=== PATIENT | female | born 1950 | race African-American/Black ===

== ENCOUNTER 2018-06-28 21:30 | Inpatient (IN) | payer MEDICARE, OTHER ==
[2018-06-28] MEDS ORDERED: BISACODYL 10 MG SUPP PR (22:00)
[2018-06-28] MEDS ORDERED: LACTULOSE 30ML CUP PO (22:00)
[2018-06-28] MEDS ORDERED: MAGNESIUM HYDROXIDE 30ML CUP PO (22:00)
[2018-06-28] MEDS: BENAZEPRIL 20 MG TAB PO (23:30)
[2018-06-28] MEDS: GABAPENTIN 300 MG CAP PO (23:30)
[2018-06-28] MEDS: SOD CHLORIDE 0.45% 1,000 ML IV (23:56)
[2018-06-29] MEDS: ALBUTEROL HFA 8 GM INHALER INH ×6 (01:00→21:19)
[2018-06-29 05:23] LABS: ADD UMIC YES; UR ASCORBIC ACID NEGATIVE (NEGATIVE); UR BILIRUBIN (Dip) NEGATIVE (NEGATIVE); UR BLOOD (Dip) NEGATIVE (NEGATIVE); UR CLARITY CLEAR (CLEAR); UR COLOR STRAW (YELLOW); UR GLUCOSE (Dip) NEGATIVE (NEGATIVE); UR KETONES (Dip) NEGATIVE (NEGATIVE); UR LEUKOCYTE ESTERASE (Dip) TRACE Leu/ul (NEGATIVE); UR NITRITE (Dip) NEGATIVE (NEGATIVE); UR RBC 0 /HPF (0-5); UR SPECIFIC GRAVITY (Dip) 1.005 (1.003-1.030); UR TOTAL PROTEIN (Dip) NEGATIVE (NEGATIVE); UR UROBILINOGEN (Dip) NEGATIVE (NEGATIVE); UR WBC 2 /HPF (0-5)
[2018-06-29 07:50] LABS: ADD MAN DIFF? NO
[2018-06-29 07:53] LABS: WHITE BLOOD COUNT 3.1 10^3/ul (4.8-10.8)
[2018-06-29 07:53] LABS: BASOPHILS % 1.3 % (0.0-2.0); EOSINOPHILS # 0.1 10^3/ul (0.0-0.5); EOSINOPHILS % 2.9 % (0.0-7.0); HEMOGLOBIN 12.4 g/dl (12.0-16.0); LYMPHOCYTES # 1.2 10^3/ul (0.8-2.9); LYMPHOCYTES % 39.7 % (15.0-51.0); MEAN CORPUSCULAR HEMOGLOBIN 27.4 pg (29.0-33.0); MEAN CORPUSCULAR HGB CONC 32.6 g/dl (32.0-37.0); MEAN CORPUSCULAR VOLUME 84.1 fl (82.0-101.0); MEAN PLATELET VOLUME 10.9 fl (7.4-10.4); MONOCYTE # 0.6 10^3/ul (0.3-0.9); MONOCYTES % 19.4 % (0.0-11.0); NEUTROPHIL # 1.1 10^3/ul (1.6-7.5); NEUTROPHILS % 36.7 % (39.0-77.0); PLATELET COUNT 157 10^3/UL (140-415); RED BLOOD COUNT 4.52 10^6/ul (4.20-5.40); RED CELL DISTRIBUTION WIDTH 14.2 % (11.5-14.5)
[2018-06-29 08:17] LABS: ALANINE AMINOTRANSFERASE 19 IU/L (13-69); ALBUMIN 3.5 g/dl (3.3-4.9); ALKALINE PHOSPHATASE 64 IU/L (42-121); ANION GAP 5 (5-13); ASPARTATE AMINO TRANSFERASE 26 IU/L (15-46); BILIRUBIN,INDIRECT 0.5 mg/dl (0-1.1); BILIRUBIN,TOTAL 0.5 mg/dl (0.2-1.3); BLOOD UREA NITROGEN 19 mg/dl (7-20); CALCIUM 9.2 mg/dl (8.4-10.2); CARBON DIOXIDE 26 mmol/L (21-31); CHLORIDE 110 mmol/L (97-110); CREATININE 1.34 mg/dl (0.44-1.00); Estimated GFR 48 mL/min (>60); GLUCOSE 92 mg/dl (70-220); POTASSIUM 3.9 mmol/L (3.5-5.1); SODIUM 141 mmol/L (135-144)
[2018-06-29] MEDS: GABAPENTIN 300 MG CAP PO ×3 (08:32→21:13)
[2018-06-29] MEDS: ASPIRIN (EC) 81 MG TAB PO (08:32)
[2018-06-29] MEDS: DOLUTEGRAVIR SODIUM 50 MG TABLET PO (08:32)
[2018-06-29] MEDS: DARUNAVIR/COBICISTAT 1 EACH TABLET PO (08:32)
[2018-06-29] MEDS: DOCUSATE SODIUM 100 MG CAP PO ×2 (08:33→21:00)
[2018-06-29] MEDS: SERTRALINE 50 MG TAB PO (08:33)
[2018-06-29] MEDS: BENAZEPRIL 20 MG TAB PO ×2 (08:33→21:15)
[2018-06-29] MEDS: LAMIVUDINE 150 MG TAB PO (09:17)
[2018-06-29] MEDS: SOD CHLORIDE 0.45% 1,000 ML IV ×2 (13:33→18:48)
[2018-06-29] MEDS: ACETAMINOPHEN 325 MG TAB PO (14:31)
[2018-06-29] MEDS: SENNA TAB PO (21:00)
[2018-06-29] MEDS: ATORVASTATIN 10 MG TAB PO (21:13)
[2018-06-30] MEDS: ALBUTEROL HFA 8 GM INHALER INH ×6 (01:00→20:36)
[2018-06-30] MEDS: SOD CHLORIDE 0.45% 1,000 ML IV ×3 (04:06→18:24)
[2018-06-30] MEDS: LAMIVUDINE 150 MG TAB PO (08:21)
[2018-06-30] MEDS: SERTRALINE 50 MG TAB PO (08:21)
[2018-06-30] MEDS: DOLUTEGRAVIR SODIUM 50 MG TABLET PO (08:21)
[2018-06-30] MEDS: DARUNAVIR/COBICISTAT 1 EACH TABLET PO (08:21)
[2018-06-30] MEDS: ASPIRIN (EC) 81 MG TAB PO (08:22)
[2018-06-30] MEDS: BENAZEPRIL 20 MG TAB PO ×2 (08:22→20:34)
[2018-06-30] MEDS: GABAPENTIN 300 MG CAP PO ×3 (08:22→20:33)
[2018-06-30] MEDS: DOCUSATE SODIUM 100 MG CAP PO ×2 (08:22→20:33)
[2018-06-30] MEDS: ATORVASTATIN 10 MG TAB PO (20:33)
[2018-06-30] MEDS: SENNA TAB PO (20:34)
[2018-07-01] MEDS: ALBUTEROL HFA 8 GM INHALER INH ×6 (01:00→20:58)
[2018-07-01] MEDS: SOD CHLORIDE 0.45% 1,000 ML IV ×2 (06:39→21:49)
[2018-07-01 07:07] LABS: ADD MAN DIFF? NO
[2018-07-01 07:11] LABS: WHITE BLOOD COUNT 2.8 10^3/ul (4.8-10.8)
[2018-07-01 07:11] LABS: BASOPHILS % 1.1 % (0.0-2.0); EOSINOPHILS # 0.1 10^3/ul (0.0-0.5); EOSINOPHILS % 3.2 % (0.0-7.0); HEMATOCRIT 38.1 % (37.0-47.0); HEMOGLOBIN 12.4 g/dl (12.0-16.0); LYMPHOCYTES % 35.9 % (15.0-51.0); MEAN CORPUSCULAR HEMOGLOBIN 27.4 pg (29.0-33.0); MEAN CORPUSCULAR HGB CONC 32.5 g/dl (32.0-37.0); MEAN CORPUSCULAR VOLUME 84.3 fl (82.0-101.0); MEAN PLATELET VOLUME 10.6 fl (7.4-10.4); MONOCYTE # 0.5 10^3/ul (0.3-0.9); MONOCYTES % 17.8 % (0.0-11.0); NEUTROPHIL # 1.2 10^3/ul (1.6-7.5); NEUTROPHILS % 41.6 % (39.0-77.0); PLATELET COUNT 170 10^3/UL (140-415); RED BLOOD COUNT 4.52 10^6/ul (4.20-5.40); RED CELL DISTRIBUTION WIDTH 14.3 % (11.5-14.5)
[2018-07-01 07:47] LABS: ANION GAP 6 (5-13); BLOOD UREA NITROGEN 24 mg/dl (7-20); CALCIUM 9.3 mg/dl (8.4-10.2); CARBON DIOXIDE 26 mmol/L (21-31); CHLORIDE 109 mmol/L (97-110); CREATININE 1.41 mg/dl (0.44-1.00); Estimated GFR 45 mL/min (>60); GLUCOSE 87 mg/dl (70-220); POTASSIUM 4.4 mmol/L (3.5-5.1); SODIUM 141 mmol/L (135-144)
[2018-07-01] MEDS: DARUNAVIR/COBICISTAT 1 EACH TABLET PO (09:24)
[2018-07-01] MEDS: DOCUSATE SODIUM 100 MG CAP PO ×2 (09:24→20:58)
[2018-07-01] MEDS: SERTRALINE 50 MG TAB PO (09:24)
[2018-07-01] MEDS: DOLUTEGRAVIR SODIUM 50 MG TABLET PO (09:24)
[2018-07-01] MEDS: GABAPENTIN 300 MG CAP PO ×3 (09:24→20:57)
[2018-07-01] MEDS: BENAZEPRIL 20 MG TAB PO ×2 (09:26→20:57)
[2018-07-01] MEDS: LAMIVUDINE 150 MG TAB PO (09:26)
[2018-07-01] MEDS: ASPIRIN (EC) 81 MG TAB PO (09:26)
[2018-07-01] MEDS: ATORVASTATIN 10 MG TAB PO (20:56)
[2018-07-01] MEDS: SENNA TAB PO (20:59)
[2018-07-02] MEDS: ALBUTEROL HFA 8 GM INHALER INH ×6 (01:03→20:56)
[2018-07-02 06:11] LABS: ADD MAN DIFF? NO; EOSINOPHILS # 0.1 10^3/ul (0.0-0.5); EOSINOPHILS % 3.4 % (0.0-7.0); HEMATOCRIT 37.4 % (37.0-47.0); HEMOGLOBIN 12.2 g/dl (12.0-16.0); LYMPHOCYTES # 1.1 10^3/ul (0.8-2.9); LYMPHOCYTES % 38.9 % (15.0-51.0); MEAN CORPUSCULAR HEMOGLOBIN 27.2 pg (29.0-33.0); MEAN CORPUSCULAR HGB CONC 32.6 g/dl (32.0-37.0); MEAN CORPUSCULAR VOLUME 83.5 fl (82.0-101.0); MEAN PLATELET VOLUME 10.3 fl (7.4-10.4); MONOCYTE # 0.5 10^3/ul (0.3-0.9); MONOCYTES % 15.7 % (0.0-11.0); NEUTROPHIL # 1.2 10^3/ul (1.6-7.5); NEUTROPHILS % 40.7 % (39.0-77.0); PLATELET COUNT 173 10^3/UL (140-415); RED BLOOD COUNT 4.48 10^6/ul (4.20-5.40)
[2018-07-02 06:11] LABS: WHITE BLOOD COUNT 2.9 10^3/ul (4.8-10.8)
[2018-07-02 06:45] LABS: ANION GAP 6 (5-13); BLOOD UREA NITROGEN 23 mg/dl (7-20); CALCIUM 9.3 mg/dl (8.4-10.2); CARBON DIOXIDE 25 mmol/L (21-31); CHLORIDE 110 mmol/L (97-110); CREATININE 1.35 mg/dl (0.44-1.00); Estimated GFR 47 mL/min (>60); GLUCOSE 93 mg/dl (70-220); POTASSIUM 4.3 mmol/L (3.5-5.1); SODIUM 141 mmol/L (135-144)
[2018-07-02] MEDS: BENAZEPRIL 20 MG TAB PO ×2 (09:00→20:51)
[2018-07-02] MEDS: LAMIVUDINE 150 MG TAB PO (09:09)
[2018-07-02] MEDS: ASPIRIN (EC) 81 MG TAB PO (09:09)
[2018-07-02] MEDS: DOCUSATE SODIUM 100 MG CAP PO ×2 (09:10→20:47)
[2018-07-02] MEDS: GABAPENTIN 300 MG CAP PO ×3 (09:10→20:47)
[2018-07-02] MEDS: DOLUTEGRAVIR SODIUM 50 MG TABLET PO (09:10)
[2018-07-02] MEDS: DARUNAVIR/COBICISTAT 1 EACH TABLET PO (09:10)
[2018-07-02] MEDS: SERTRALINE 50 MG TAB PO (09:10)
[2018-07-02] MEDS: SENNA TAB PO (20:47)
[2018-07-02] MEDS: ATORVASTATIN 10 MG TAB PO (20:47)
[2018-07-03] MEDS: ALBUTEROL HFA 8 GM INHALER INH ×3 (01:00→08:40)
[2018-07-03] MEDS: GABAPENTIN 300 MG CAP PO (08:40)
[2018-07-03] MEDS: DOCUSATE SODIUM 100 MG CAP PO (08:40)
[2018-07-03] MEDS: DARUNAVIR/COBICISTAT 1 EACH TABLET PO (08:40)
[2018-07-03] MEDS: DOLUTEGRAVIR SODIUM 50 MG TABLET PO (08:41)
[2018-07-03] MEDS: BENAZEPRIL 20 MG TAB PO (08:41)
[2018-07-03] MEDS: ASPIRIN (EC) 81 MG TAB PO (08:41)
[2018-07-03] MEDS: SERTRALINE 50 MG TAB PO (08:41)
[2018-07-03] MEDS: LAMIVUDINE 150 MG TAB PO (08:42)
== END 2018-07-03 10:00 | disposition home health service (06) | DRG 92 ==
LOC: VRC 21:30
DX: G92 Toxic encephalopathy (principal); N17.9 Acute kidney failure, unspecified; I13.0 Hypertensive heart and chronic kidney disease with heart failure and stage 1 through stage 4 chronic kidney disease, or unspecified chronic kidney disease; I50.40 Unspecified combined systolic (congestive) and diastolic (congestive) heart failure; Z86.73 Personal history of transient ischemic attack (TIA), and cerebral infarction without residual deficits; I69.320 Aphasia following cerebral infarction; I67.9 Cerebrovascular disease, unspecified; G81.94 Hemiplegia, unspecified affecting left nondominant side; F32.9 Major depressive disorder, single episode, unspecified; E78.5 Hyperlipidemia, unspecified; J44.9 Chronic obstructive pulmonary disease, unspecified; N18.9 Chronic kidney disease, unspecified; E87.5 Hyperkalemia
CPT/HCPCS: 80048; 80053; 81001; 85025; 87081; 87086; 97110; 97116; 97163; 97167; 97530; 97535; 97542